=== PATIENT | male | born 1955 ===

== ENCOUNTER 2023-04-20 05:55 | Day surgery (SDC) | payer OTHER ==
[2023-04-18 09:58] LABS: HEMATOCRIT 39.5 % (39.0-48.0); HEMOGLOBIN 13.4 g/dL (13-16.00); MEAN CELL VOLUME 93.4 fL (80.0-100.00); MEAN CORPUSCULAR HEMOGLOBIN 31.6 pg (27.00-32.0); MEAN CORPUSCULAR HGB CONC 33.9 g/dl (32.0-36.0); PLATELET COUNT 208 K/uL (150-450); RED BLOOD COUNT 4.23 M/uL (4.00-6.00); RED CELL DISTRIBUTION WIDTH 12.5 % (11.5-14.5)
[2023-04-18 09:59] LABS: URINE APPEARANCE Clear; URINE BILIRRUBIN Negative (NEGATIVE); URINE BLOOD Negative; URINE COLOR Yellow; URINE GLUCOSE Negative (NEGATIVE); URINE LEUKOCYTE Negative; URINE NITRATE Negative; URINE PROTEIN Negative (NEGATIVE); URINE UROBILINOGEN 0.2 E.U./dl
[2023-04-18 10:04] LABS: URINE EPITHELIAL CELLS 1.5 uL (0.0-38.8); URINE RBC 6.6 uL (0.0-20.8); URINE WBC 1.8 uL (0.0-23.2)
[2023-04-18 10:30] LABS: INR 1.09; PARTIAL THROMBOPLASTIN TIME 26.8 SECONDS (22.0-34.0); PROTHROMBIN TIME 11.4 SECONDS (9.0-11.5)
[2023-04-18 11:10] LABS: CALCIUM 8.9 mg/dL (8.5-10.1); CREATININE SERUM 0.96 mg/dL (0.70-1.30); GFR 78.13; POTASSIUM 3.37 mEq/L (3.5-5.1)
[~2023-04-20 05:55] MED LIST: FENOFIBRATE50 MG PO; TOPROL XL25 M1 PO
[2023-04-20] MEDS ORDERED: TYLENOL ARTHRI650 MG PO (09:11)
[2023-04-20] MEDS ORDERED: KETO10TA2 PO (09:11)
[2023-04-20] MEDS ORDERED: NEURONTIN300 MG PO (09:11)
[2023-04-20] MEDS ORDERED: MIRALAX17 GM PO (09:11)
[2023-04-20] MEDS ORDERED: TRAMADOL HCL50 MG PO (09:11)
== END 2023-04-20 11:15 | disposition home or self-care (01) ==
LOC: CIR.AMB 05:55
PROVIDERS: ATTEND Surgery
DX: K42.0 Umbilical hernia with obstruction, without gangrene (principal); I10 Essential (primary) hypertension; R10.9 Unspecified abdominal pain; Z20.822 Contact with and (suspected) exposure to COVID-19
CPT/HCPCS: 49594; C1781